=== PATIENT | female | born 1945 | race Caucasian/White ===

== ENCOUNTER → 2016-09-17 | Outpatient (CLI) | payer BC ==
[~2016-09-17] MED LIST: GLCPUNK; GLYUNK; JNVUNK; LEVO1TAB35 PO; LVXUNK; PRLSRUNK; ZCRUNK; [UNRECOGNIZED DRUG - CODE]
--- NOTE | 2016-09-17 14:32 | DIAGNOSTIC IMAGING REPORT ---
MRI CERVICAL WITHOUT CONTRAST CLINICAL HISTORY: LT HAND NUBMNESS,CERVICAL DJD TECHNIQUE: Sagittal and axial T1, T2 and STIR images were obtained. COMPARISON STUDY: Conventional radiographic study dated 08/04/2016 There are no suspicious areas of marrow replacement. No intrinsic cervical cord lesions are visualized. C2-3: There is no evidence of disc bulge or focal herniation. There is no spinal or foraminal stenosis. C3-4: There is no evidence of significant disc bulge or focal herniation. There is right-sided foraminal narrowing. C4-5: There is a circumferential disc bulge present. There is mild spinal stenosis. There is bilateral foraminal narrowing left more severe than right C5-6 :There is a circumferential disc bulge present. There is mild spinal stenosis. There is bilateral foraminal narrowing. C6-7: There is a circumferential disc bulge present. There is no significant spinal stenosis. There is mild bilateral foraminal narrowing C7-T1: There is no evidence of disc bulge or focal herniation. There is no spinal stenosis. There is mild right-sided foraminal narrowing. IMPRESSION:Multilevel spondylitic changes. Mild spinal stenosis the C4-5 and C5-6 levels. Multilevel foraminal narrowing. Electronically signed by: Dario Frank M.D. 09/17/2016 2:30 PM Dictated Date/Time: 09/17/2016 2:25 PM
== END | disposition home or self-care (01) ==
LOC: C.MRI 13:37
PROVIDERS: ATTEND Family Medicine
DX: R20.8 Other disturbances of skin sensation (principal); M50.30 Other cervical disc degeneration, unspecified cervical region; L29.9 Pruritus, unspecified; M47.812 Spondylosis without myelopathy or radiculopathy, cervical region; M48.02 Spinal stenosis, cervical region

== ENCOUNTER → 2017-06-15 | Outpatient (CLI) | payer BC ==
--- NOTE | 2017-06-16 07:50 | MAMMOGRAPHY REPORT ---
BILATERAL DIGITAL SCREENING MAMMOGRAM TOMOSYNTHESIS WITH CAD: 06/15/2017 TECHNIQUE: Breast tomosynthesis in addition to standard 2D mammography was performed. Current study was also evaluated with a Computer Aided Detection (CAD) system. COMPARISON: Comparison is made to exams dated: 06/10/2016 mammogram - [facility], mammogram, 04/16/2014 mammogram, 12/28/2012 mammogram, 11/30/2011 mammogram, and 04/16/2009 mammog radha. BREAST COMPOSITION: There are scattered areas of fibroglandular density in both breasts. FINDINGS: No suspicious masses, calcifications, or areas of architectural distortion are noted in ei ther breast. There has been no significant interval change compared to prior exams. IMPRESSION: ACR BI-RADS CATEGORY 1: NEGATIVE There is no mammographic evidence of malignancy. A 1 year screening mammogram is recommended. The pa tient will receive written notification of the results. Approximately 10% of breast cancers are not detected with mammography. A negative mammographic report should not delay biopsy if a clinically suggestive mass is present. Coco Gage M.D. ah/:06/15/2017 08:24:42 [employer]ement [employer]ile [employer]: Vicky PARSONS(R)(M), [facility] letter sent: Normal 1/2 BI-RADS Code: ACR BI-RADS Category 1: Negative
== END | disposition home or self-care (01) ==
LOC: C.MAMM 08:03
PROVIDERS: ATTEND Family Medicine
DX: Z12.31 Encounter for screening mammogram for malignant neoplasm of breast (principal)

== ENCOUNTER → 2017-08-02 | Outpatient (CLI) | payer BC ==
--- NOTE | 2017-08-02 08:40 | DIAGNOSTIC IMAGING REPORT ---
RIGHT SHOULDER 3 VIEWS CLINICAL HISTORY: Right shoulder pain. FINDINGS: 3 views of the right shoulder are obtained. No prior studies are available for comparison at the time of dictation. The skeletal structures are osteopenic. No fracture is seen. The glenohumeral articulation is preserved. Mild productive degenerative change is noted at the acromioclavicular joint. The overlying soft tissues are within normal limits. The visualized right upper lobe lung parenchyma appears clear. IMPRESSION: Osteopenia and minimal degenerative change as above. No acute bony abnormality is seen in the right shoulder. Electronically signed by: Robert Juárez M.D. 08/02/2017 8:38 AM Dictated Date/Time: 08/02/2017 8:37 AM
== END | disposition home or self-care (01) ==
LOC: C.RDSM 08:10
PROVIDERS: ATTEND Family Medicine
DX: M85.811 Other specified disorders of bone density and structure, right shoulder (principal); M25.511 Pain in right shoulder

== ENCOUNTER → 2018-03-23 | Outpatient (CLI) | payer BC ==
[~2018-03-23] MED LIST changes: +OPTIRAY 320 IV PRN
--- NOTE | 2018-03-23 11:00 | DIAGNOSTIC IMAGING REPORT ---
ABDOMEN AND PELVIS CT WITH IV AND ORAL CONTRAST CT DOSE: 1093.75 mGycm HISTORY: Abnormal weight loss. Abdominal distention. TECHNIQUE: Multiaxial CT images of the abdomen and pelvis were performed following the use of intravenous and oral contrast. A dose lowering technique was utilized adhering to the principles of ALARA. COMPARISON STUDY: Abdomen and pelvis CT 12/22/2012. FINDINGS: The lung bases are clear. No pneumoperitoneum. No pneumatosis. No suspicious lytic or blastic osseous lesions. Tiny fat-containing umbilical hernia. Focal area of skin thickening and subcutaneous fat and within the right lower quadrant. The liver, spleen, right adrenal gland, and pancreas are unremarkable. Cholecystectomy. Bilateral peripelvic renal cysts. The kidneys enhance normally. No hydronephrosis. A 6 mm fat-containing lesion within the left adrenal gland. This is consistent with a benign myelolipoma. No retroperitoneal lymphadenopathy. The bladder, uterus, and bilateral adnexa are within normal limits. No pelvic free fluid. A few sigmoid diverticula. No evidence for diverticulitis. No bowel wall thickening or obstruction. The appendix is not identified and reportedly surgically absent. IMPRESSION: 1. No bowel wall thickening or obstruction. 2. Postoperative changes as described above. 3. Small focal area of skin thickening and subcutaneous fat stranding within the right lower quadrant. This could be due to prior medication injection or a small contusion. Electronically signed by: Prince Ross M.D. 03/23/2018 10:59 AM Dictated Date/Time: 03/23/2018 10:45 AM
== END | disposition home or self-care (01) ==
LOC: C.CTS 08:06
PROVIDERS: ATTEND Family Medicine
DX: R14.0 Abdominal distension (gaseous) (principal); R63.4 Abnormal weight loss; R93.5 Abnormal findings on diagnostic imaging of other abdominal regions, including retroperitoneum